=== PATIENT | male | born 1955 | race Caucasian/White ===

== ENCOUNTER → 2021-04-12 | Day surgery (SDC) | payer BLACK LUNG, MEDICARE ==
[~2021-04-12] MED LIST: ALBUTEROL; ALBUTEROL2.5 MG/3 M INH; ASPIRIN81 MG PO; GABAPENTIN300 MG PO; HYDROCODONE-AC1 EAC1 PO; TRELEGY ELLIPT1 EACH INH
== END | disposition home or self-care (01) ==
LOC: OR 06:11 → EDSTATUS 07:30
DX: R91.1 Solitary pulmonary nodule (principal); R59.0 Localized enlarged lymph nodes; F17.210 Nicotine dependence, cigarettes, uncomplicated; J60 Coalworker's pneumoconiosis; J43.9 Emphysema, unspecified; Z20.822 Contact with and (suspected) exposure to COVID-19; Z79.82 Long term (current) use of aspirin; Z72.89 Other problems related to lifestyle
CPT/HCPCS: J0330; J2250; J2370; J2405; J2704; J3010; J7040; J7120

== ENCOUNTER → 2021-04-28 | Outpatient (CLI) | payer BLACK LUNG, MEDICARE | LOC: HEART 5 10:38 | DX: J44.9 Chronic obstructive pulmonary disease, unspecified (principal); R94.2 Abnormal results of pulmonary function studies | CPT/HCPCS: 94060; 94729 ==